=== PATIENT | female | born 1990 | race African-American/Black ===

== ENCOUNTER 2023-05-02 23:04 | Emergency (ER) | payer MEDICAID ==
[~2023-05-02] VITALS: Ht 170.2 cm; Wt 69.0 kg
[2023-05-02 23:43] VITALS: O2SAT 98
[2023-05-03] MEDS ORDERED: ONDANSETRON HCL 4MG/2ML INJ IV STA (00:02)
[2023-05-03] MEDS: SODIUM CHLORIDE 0.9% 1,000 ML IV ONE (00:15)
[2023-05-03 00:33] LABS: BASOPHILS % 0.5 % (0.0-2.0); DIFFERENTIAL COMMENT 0; EOSINOPHILS % 0.5 % (0.0-5.0); HEMATOCRIT. 35.2 % (36.0-48.0); HEMOGLOBIN. 11.1 g/dL (12.0-16.0); LYMPHOCYTES % 34.7 % (20.0-50.0); MEAN CORPUSCULAR HEMOGLOBIN 25.2 pg (28.0-32.0); MEAN CORPUSCULAR HGB CONC 31.6 g/dL (31.0-37.0); MEAN CORPUSCULAR VOLUME 79.7 fL (81.0-99.0); MEAN PLATELET VOLUME 7.6 fl (7.4-10.4); MONOCYTES % 6.5 % (2.0-8.0); NEUTROPHILS % 57.8 % (40.0-76.0); PLATELET 325 x1000/uL (130-400); RED BLOOD CELL COUNT 4.41 mill/uL (4.2-5.4); WHITE BLOOD COUNT 5.8 x1000/uL (4.5-11.0)
[2023-05-03 00:47] LABS: ALANINE AMINOTRANSFERASE 20 IU/L (10-49); ALBUMIN 5.2 g/dL (3.2-4.8); ASPARTATE AMINOTRANSFERASE 24 IU/L (<34); BILIRUBIN TOTAL 0.4 mg/dL (0.1-1.0); CALCIUM 8.9 mg/dL (8.7-10.4); CARBON DIOXIDE 26 mEq/L (21-32); CHLORIDE 106 mEq/L (98-107); CREATININE 0.7 mg/dL (0.6-1.0); GLUCOSE 120 mg/dL (70-105); HCG SCREEN NEGATIVE; POTASSIUM 3.8 mEq/L (3.5-5.1); PROTEIN TOTAL 8.8 g/dL (6.0-8.3); SODIUM 140 mEq/L (136-145); UREA NITROGEN BLOOD 11 mg/dL (9-23)
[2023-05-03 08:51] VITALS: BP 130/78; PULSE 70; RESP 13; TEMP 98.6
== END 2023-05-03 09:16 | disposition home or self-care (01) ==
LOC: ER 23:04
DX: T51.0X1A Toxic effect of ethanol, accidental (unintentional), initial encounter (principal); R41.82 Altered mental status, unspecified; Y92.89 Other specified places as the place of occurrence of the external cause
CPT/HCPCS: 99291; 96361; 70450; 96360; 80053; 84703; 85025; 86850; 86900; 86901; 36415; 71045; 72125; 74176; J7030